=== PATIENT | female | born 1925 | race Caucasian/White ===

== ENCOUNTER 2016-09-28 17:11 | Inpatient (IN) | payer MEDICARE, MEDICAID ==
[2016-09-27 23:00] VITALS: BP 101/46
[~2016-09-28] VITALS: Ht 165.1 cm; Wt 78.9 kg
[~2016-09-28 17:11] MED LIST: AMLO5TAB PO; ASPIRIN 81MG TA81 MG PO; BENADRYL ALLERG25 MG PO; CARDIZEM CD300 M1 PO; CYANOCOBAL1000 MCG/M PO; DIOVAN HCT 12.51 TA1 PO; ELIQUIS2.5 MG PO; FUROSEMIDE 20MG20 MG PO; FUROSEMIDE40 MG PO; GLIPIZIDE 5MG TA5 MG PO; GLIPIZIDE ER 5MG5 MG PO; LEVOTHYROXIN0.075 M1 PO; LUMIGAN 2.5 ML2.5 M1 OP; PATADAY 2.5 ML2.5 ML OP; PHENERGAN25 M3 PO; RANITIDINE HCL150 MG PO; SIMVASTATIN20 MG PO; VALSARTAN AND H1 TA1 PO; VITAMIN B12500 MCG PO; VITAMIN D1000 IU PO; VITAMIN D31000 IU PO
[2016-09-28 17:12] VITALS: BP 150/79
[2016-09-28] MEDS ORDERED: LASIX 40MG. TAB40 MG PO (17:26)
--- NOTE | 2016-09-28 17:26 | Emergency Room Report ---
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 N Clinical Suspician of Infection? N Mental Status: 1 - Regular (Normal Baseline) Sepsis Risk:Low Sepsis Risk Have you (or family members/close friends) recently traveled outside the [place]? N If Yes, where/when: Have you had exposure to infectious disease within the past month? TB? Other? Specify: Comment The patient is brought in by ambulance with a complaint of rapid heartbeat. This started about 4:30 PM. She has a history of atrial fibrillation and says she was admitted for the same thing about a month ago and was in the hospital for 3 days. She says she has slight shortness of breath with it but no chest pain. She feels tired but not presyncopal. No nausea or vomiting or diaphoresis. She does not have a history of coronary artery disease or congestive heart failure to her knowledge. ALLERGIES Coded Allergies: Penicillins (08/09/16) meclizine (08/09/16) prednisone (08/09/16) Home Medications Active Scripts DILTIAZEM HCL (Cardizem Cd 300MG) 300 MG PO DAILY #30 Ref 3 Prov: 08/12/16 ASPIRIN (Aspirin) 325 MG PO DAILY #30 Ref 3 Prov: 08/12/16 Reported Medications [facility] ([facility] 1 DROP OP DAILY VALSARTAN/HYDROCHLOROTHIAZIDE (Valsartan-Hctz 160-12.5 MG Tab) 1 TAB PO DAILY Simvastatin 20 MG PO DAILY Glipizide (Glipizide 5MG) 2.5 MG PO DAILY Ranitidine Hcl (Ranitidine 150MG) 150 MG PO BID Levothyroxine Sodium (Levothyroxine 0.075MG) 0.075 MG PO DAILY VITAMIN B12 (Cyanocobalamin Injection) 1,000 MCG PO DAILY Furosemide (Lasix 40MG) 20 MG PO DAILY History Medical History General CAD? No Angina: No [place]: No Hypertension? Yes Hyperlipidemia? Yes CHF? No DVT? Yes PE? No COPD? No Asthma? No Anemia? No GERD? Yes Gastric ulcers? No GI Bleed? No Hernia? No Thyroid Problems? Yes Hypothyroidism? Yes CVA? No Seizures? No Diabetes? Yes Insulin Dependent: No Insulin Pump: No Home FSBS? No Renal Insuffiency? No End Stage Renal Disease? No UTI? Yes Stones? No GB Disease: Yes Nephritic Syndrome? No Asplenia? No Hepatitis? No Sickle Cell Disease? No Arthritis? No Migraines? No Cataracts? Yes Glaucoma? Yes MRSA? No HIV? No TB? No Anxiety? No Depression? No Cancer? No More? Yes Additional hx: A FIB Immunization Hx DT/Tetanus 12/13/2005 Flu Refused Pneumonia Received In Past Surgical Hx Previous Surgery?Y C SECTION X 3 GALLBLADDER TOE OPERATION Family History Family Hx Diabetes Yes CAD Yes Hypertension Yes Hyperlipidemia No Cancer Yes TB No Social History Smoking Hx Smoker: Never Smoker Tobacco: No Packs/day N/A Alcohol Alcohol: No Review of Systems All Other Systems Reviewed and Negative Constitutional denies diaphoresis, denies fever, malaise Respiratory shortness of breath Cardiovascular denies chest pain, palpitations, denies syncope Gastrointestinal denies nausea, denies vomiting Physical Exam Vital Signs Vital Signs Date Time Temp Pulse Resp B/P Pulse O2 O2 Flow FiO2 Ox Delivery Rate 09/28 2007 97.6 102 16 132/82 95 ROOM AIR 09/28 1919 97.8 102 16 135/56 09/28 1903 97.8 102 16 135/56 100 2 09/28 1832 102 16 135/56 100 2 09/28 1752 100 16 131/45 100 2 09/28 1712 97.8 112 16 150/79 100 2 General Appearance normal appearance, WD/WN Eye Exam - bilateral eye normal exam, bilateral eye PERRL, bilateral eye EOMI Ear, Nose, Throat hearing grossly normal, normal ENT inspection Neck normal inspection, non-tender, supple, full range of motion Respiratory Status Yes: trachea midline, chest symmetrical, non tender chest. No: respiratory distress. Lung Sounds bilateral: normal breath sounds, lungs clear. 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 No Results/Orders Laboratory Tests 09/28/161714: TSH 1.48, Free T4 1.47 H 09/28/161714: Sodium 136, Potassium 3.0 L, Chloride 95 L, Carbon Dioxide 30, BUN 32 H, Creatinine 1.6 H, Estimated Creat Clear 33 L, Estimated GFR (MDRD) 30 L, Glucose 126 H, Calcium 9.3, Total Bilirubin 0.3, AST 20, ALT 17, Alkaline Phosphatase 114, Troponin I < 0.02, Total Protein 8.8 H, Albumin 4.0, Globulin 4.8 H, Albumin/Globulin Ratio 0.8 L, WBC 11.0 H, RBC 4.77, Hgb 14.9, Hct 43.5 , MCV 91.1, RDW 15.0, Plt Count 488 H, MPV 8.8, Gran % 74.9, Gran # 8.3 H, Lymphocytes % 16.0, Monocytes % 5.8, Eosinophils % 2.6, Basophils % 0.7, Lymphocytes # 1.8, Monocytes # 0.6, Eosinophils # 0.3, Basophils # 0.1, PUBS MCHC 34.3, MCH 31.3 H Current Medication Orders Sig/Mega Start time Last Medication Dose Route Stop Time Status Admin Diagnostic Test (Pha) 1 EACH W/MEALS&HS 09/28 2099 UNV FS 11/27 2058 Insulin Human [rDNA See Dose W/MEALS&HS 09/28 2099 UNV origin] Insts (1) SC Diltiazem HCl 100 MG .Q10H 09/28 1844 UNV Sodium Chloride 100 ML IV Influenza Virus 0.5 ML PRN PRN 09/28 1844 UNV Vaccine Quadrival IM Nicotine 21 MG DAILYP PRN 09/28 1844 UNV TD Sodium Chloride 10 ML PRN PRN 09/28 1844 UNV IV Potassium Chloride 40 MEQ ONCE ONE 09/28 1814 DC 09/28 PO 01/01 1816 1817 Potassium Chloride 0 .STK-MED ONE 09/28 1811 DC PO Diltiazem HCl 100 MG ONCE ONE 09/28 1745 AC 09/28 Sodium Chloride 100 ML IV 09/29 0344 1753 Diltiazem HCl 10 MG ONCE ONE 09/28 1745 DC 09/28 IV 09/28 1746 1753 Sodium Chloride 10 ML PRN PRN 09/28 1745 AC IV 09/29 1745 Sodium Chloride 100 ML .STK-MED ONE 09/28 1744 DC IV Diltiazem HCl 0 .STK-MED ONE 09/28 1743 DC IV Diltiazem HCl 0 .STK-MED ONE 09/28 1742 DC IV Dose Instructions: (1)Insulin Human [rDNA origin]: SEE ADMIN CRITERIA FOR MEDIUM INTENSITY Orders Procedure Date/time Status -1999 CALORIE ADA 09/29 B Active BASIC METABOLIC PROFILE 09/29 0600 Active TROPONIN I 09/29 0500 Active TROPONIN I 09/29 0100 Active TROPONIN I 09/28 2100 Active ADMITTED PT IS ACTUALLY IN BED 09/28 2010 Active Decision to admit 09/28 1820 Active THYROID STIMULATING HORMONE 09/28 1746 Complete FREE T4 09/28 1746 Complete ELECTROCARDIOGRAM REQUEST 09/28 1745 Active IV SALINE LOCK 09/28 1745 Active TROPONIN I 09/28 1745 Complete CBC WITH AUTO DIFF 09/28 1745 Complete CHEM 12 PROFILE 09/28 1745 Complete ADMIT PATIENT 09/28 UNK Active 12 LEAD EKG-MONIE (INITIAL) 09/28 UNK Active PULSE OXIMETRY REQUEST 09/28 UNK Active OXYGEN REQUEST 09/28 UNK Active VITAL SIGNS 09/28 UNK Active 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 Baseline artifact present, but I consider the EKG adequate for accurate interpretation. XRAY/CT/US XRAY/CT/US XRAY chest Comment X-ray interpreted by Rah Jones M.D. No infiltrate, pneumothorax, pleural effusion, or wide mediastinum. Progress - 6:15 PM: I have discussed the case with Dr. Bradford for Dr. Mcgrath who agrees to admit the patient to the hospital. We discussed the patient's clinical information, including history, exam, laboratory and radiology results and ED course. Per hospital procedure, I will write temporary bridge inpatient orders on the patient. Specific orders requested by the admitting physician: Nadeem conley per protocol Departure Departure Disposition Still a Patient Clinical Impression Primary Impression: Rapid atrial fibrillation Condition STABLE Referrals Antoine Mcgrath MD (Family) ED Critical Care Critical Care Yes Time spent 30-74 min Vital system(s) involved: Circulatory Failure I was present at bedside for Coordinating pt's care, Interpreting EKGs/Strips , During my initial exam, Reviewing lab results, Reviewing old records, Discussing pt condition, Examining radiographs at 2035
[2016-09-28 17:53] LABS: LYMPH # 1.8 K/mm3 (0.7-4.5)
[2016-09-28 17:54] LABS: HEMOGLOBIN 14.9 g/dL (12.2-16.2)
[2016-09-28 18:02] LABS: BUN 32 mg/dL (7-18); GFR (ESTIMATED) 30 ML/MIN (59-)
--- NOTE | 2016-09-28 18:37 | RADIOLOGY REPORT PS360 ---
CHEST-PORTABLE COMPARISON: Portable upright chest 08/09/2016 HISTORY: Palpitations TECHNIQUE: Portable upright chest FINDINGS: The lung conner are fairly well-expanded and appear clear of infiltrate. There is mild cardiomegaly however there is no pulmonary congestion and is no pleural fluid. There are monitor lines overlying the chest. There is mild degenerative changes in both AC joints with somewhat high riding humeral heads bilaterally. IMPRESSION: Mild Cardio megaly, no acute chest pathology noted
[2016-09-28 19:19] VITALS: BP 135/56
[2016-09-28 20:00] VITALS: BP 165/58
[2016-09-28 20:08] VITALS: BP 132/82
[2016-09-28 21:00] VITALS: BP 130/51; BP 149/60
[2016-09-28 22:00] VITALS: BP 130/51
[2016-09-29] VITALS (26 sets, daily range): BP systolic 92–151; BP diastolic 41–72
[2016-09-29 05:44] LABS: BUN 29 mg/dL (7-18)
[2016-09-29 05:50] LABS: GFR (ESTIMATED) 33 ML/MIN (59-)
--- NOTE | 2016-09-29 07:17 | PHARMACY CLINIC NOTE ---
Patient Demographics Patient Demographics Admission date: 09/28/16 Date: 09/29/16 Time: 0717 Allergies Coded Allergies: Penicillins (08/09/16) meclizine (08/09/16) prednisone (08/09/16) HEIGHT- FT: 5 IN: 5.00 K.574 VTE General Information Labs: Laboratory Tests 09/28 1715 Hematology Hgb (12.2 - 16.2 g/dL) 14.9 Hct (37.0 - 47.0 %) 43.5 Plt Count (142 - 424 K/mm3) 488 H Disclaimer The following section includes nursing documentation that has been pulled in for pharmacy review. Patient's VTE score: 3 Patient's VTE Risk: LOW RISK Clinical trial participant? No VTE prophylaxis [id number] [id number] VTE prophylaxis ordered? Yes Type of prophylaxis/treatment: AVELINA at 0717
--- NOTE | 2016-09-29 07:17 | PHARMACY CLINIC NOTE ---
Patient Demographics Patient Demographics Admission date: 09/28/16 Date: 09/29/16 Time: 0717 Allergies Coded Allergies: Penicillins (08/09/16) meclizine (08/09/16) prednisone (08/09/16) HEIGHT- FT: 5 IN: 5.00 K.574 VTE General Information Labs: Laboratory Tests 09/28 1715 Hematology Hgb (12.2 - 16.2 g/dL) 14.9 Hct (37.0 - 47.0 %) 43.5 Plt Count (142 - 424 K/mm3) 488 H Disclaimer The following section includes nursing documentation that has been pulled in for pharmacy review. Patient's VTE score: 3 Patient's VTE Risk: LOW RISK Clinical trial participant? No VTE prophylaxis [id number] [id number] VTE prophylaxis ordered? Yes Type of prophylaxis/treatment: AVELINA at 0717
--- NOTE | 2016-09-29 08:58 | HISTORY AND PHYSICAL REPORT ---
History and Physical (FCA) Date of admission: 09/28/16 Chief complaint: rapid heart rate and choking History: History of Present Illness: Ms Claudio is an 89 year old female with a history of atrial fibrillation, HTN, hypothyroidism, and type 2 DM who presented to [facility] ER after experiencing rapid heart rate with choking sensation. She stated that this did improve on the way to the hospital with EMS. She denies CP. The rapid heart rate began about 1500 when sitting. She had become upset after being spoken to harshly by family members. This AM she is feeling better. She denies SOB and CP. She is eating her breakfast. Past Medical History: Medical History: CAD? No Angina: No [place]: No Hypertension? Yes Hyperlipidemia? Yes CHF? No DVT? Yes PE? No COPD? No Asthma? No Anemia? No GERD? Yes Gastric ulcers? No GI Bleed? No Hernia? No Thyroid Problems? Yes Hypothyroidism? Yes CVA? No Seizures? No Diabetes? Yes Insulin Dependent: No Insulin Pump: No Home FSBS? No Renal Insuffiency? No UTI? Yes Stones? No GB Disease: Yes Nephritic Syndrome? No Asplenia? No Hepatitis? No Sickle Cell Disease? No Arthritis? No Migraines? No Cataracts? Yes Glaucoma? Yes MRSA? No HIV? No TB? No Anxiety? No Depression? No Cancer? No More? Yes Additional hx: A FIB Surgical history: Previous Surgery?Y C SECTION X 3 GALLBLADDER TOE OPERATION Medications: Active Scripts DILTIAZEM HCL (Cardizem Cd 300MG) 300 MG PO DAILY #30 Ref 3 Prov: 08/12/16 ASPIRIN (Aspirin) 325 MG PO DAILY #30 Ref 3 Prov: 08/12/16 Reported Medications Bimatoprost (Lumigan 0.1% [facility]) 1 DROP OP DAILY VALSARTAN/HYDROCHLOROTHIAZIDE (Valsartan-Hctz 160-12.5 MG Tab) 1 TAB PO DAILY Simvastatin 20 MG PO DAILY Glipizide (Glipizide 5MG) 2.5 MG PO DAILY Ranitidine Hcl (Ranitidine 150MG) 150 MG PO BID Levothyroxine Sodium (Levothyroxine 0.075MG) 0.075 MG PO DAILY VITAMIN B12 (Cyanocobalamin Injection) 1,000 MCG PO DAILY Furosemide (Lasix 40MG) 20 MG PO DAILY Allergies: Coded Allergies: Penicillins (08/09/16) meclizine (08/09/16) prednisone (08/09/16) Family History: Family history: Postive for: DM, cancer. Social History: Smoking Hx Tobacco: No Smoker: Never Smoker Type: N/A Packs/day: N/A Are you exposed to second hand No Alcohol: Alcohol: No Hx of Drug Use: Drug Use? No Patien't marital status is: Review of Systems: Constitutional No: fatigue. ENT No: mouth pain, sore throat. Cardiovascular Positive for: palpitations. No: chest pain. Respiratory Positive for: shortness of air. No: non-productive, productive cough (sputum). GI No: GERD, abdominal pain, constipation, diarrhea, nausea, vomitting. (female) No: frequency, hematuria. Neurological No: dizziness, headache, seizure, syncope. Musculoskeletal No: extremity pain, extremity swelling, joint pain. Physical Exam: Vital signs: 1ST Vital Signs Result Date Time Pulse Ox 97 09/27 2300 B/P 101/46 09/27 2300 O2 Delivery ROOM AIR 09/27 2300 Pulse 76 09/27 2300 Resp 14 09/27 230 O2 Flow Rate 2 09/28 1712 Temp 97.8 09/28 171 Exam: General appearance: alert, active, no acute distress Eyes: anicteric, pupils reactive to light ENT: mucous membranes moist, pharynx normal Neck: no carotid bruit, lymphadenopathy (absent), thyroid (normal) Cardiovascular: irregularly irregular, monitor showing AT Fib with PVC's Respiratory: clear to auscultation (bilat anterior and posterior) ABD: non-distended, soft, no tenderness, bowel sounds present Extremities: no peripheral edema, no calf tenderness Neuro: alert, oriented, speech clear Lab data: Labs: Laboratory Tests 09/29/16 0731: POC Glucose 128 H 09/29/16 0500: Sodium 139, Potassium 4.2, Chloride 102, Carbon Dioxide 31, BUN 29 H, Creatinine 1.5 H, Estimated GFR (MDRD) 33 L, Glucose 124 H, Calcium 8.7, Troponin I 0.03 09/29/16 0100: Troponin I 0.03 09/28/16 2201: POC Glucose 117 H 09/28/16 2100: Troponin I 0.02 09/28/16 1715: TSH 1.48, Free T4 1.47 H 09/28/16 1715: Sodium 136, Potassium 3.0 L, Chloride 95 L, Carbon Dioxide 30, BUN 32 H, Creatinine 1.6 H, Estimated Creat Clear 33 L, Estimated GFR (MDRD) 30 L, Glucose 126 H, Calcium 9.3, Total Bilirubin 0.3, AST 20, ALT 17, Alkaline Phosphatase 114, Troponin I < 0.02, Total Protein 8.8 H, Albumin 4.0, Globulin 4.8 H, Albumin/Globulin Ratio 0.8 L, WBC 11.0 H, RBC 4.77, Hgb 14.9, Hct 43.5 , MCV 91.1, RDW 15.0, Plt Count 488 H, MPV 8.8, Gran % 74.9, Gran # 8.3 H, Lymphocytes % 16.0, Monocytes % 5.8, Eosinophils % 2.6, Basophils % 0.7, Lymphocytes # 1.8, Monocytes # 0.6, Eosinophils # 0.3, Basophils # 0.1, PUBS MCHC 34.3, MCH 31.3 H Radiology results: Results: CXR FINDINGS: The lung conner are fairly well-expanded and appear clear of infiltrate. There is mild cardiomegaly however there is no pulmonary congestion and is no pleural fluid. There are monitor lines overlying the chest. There is mild degenerative changes in both AC joints with somewhat high riding humeral heads bilaterally. IMPRESSION: Mild Cardio megaly, no acute chest pathology noted Diagnosis(es): 1. Atrial fibrillation with rapid ventricular response 2. HTN (hypertension) 3. Renal insufficiency 4. DM2 (diabetes mellitus, type 2) 5. Hypothyroidism 6. GERD (gastroesophageal reflux disease) Plan: start back on PO cardizem and wean from gtt; continue to monitor (Keri De Paz APRN) Diagnosis(es): 1. Atrial fibrillation with rapid ventricular response 2. HTN (hypertension) 3. Renal insufficiency 4. DM2 (diabetes mellitus, type 2) 5. Hypothyroidism 6. GERD (gastroesophageal reflux disease) Plan: Patient seen and agree with above note. (Antoine Mcgrath MD) at 0929 at [phone]
[2016-09-30] VITALS (13 sets, daily range): BP systolic 116–156; BP diastolic 58–90
--- NOTE | 2016-09-30 07:43 | ACUTE CARE PROGRESS NOTE (QUA) ---
See Addendum Progress Notes Subjective Date 09/30/16 Time 0730 Note Did not sleep until this AM; unable to sleep for unknown reasons; breathing as usual; denies CP; + stool; is eating without problems; voiding QS Per nursing: has been off of cardizem gtt since yesterday afternoon; has remained in At fib with high V rate 120. Cardiac enzymes were negative x3. Objective Findings Laboratory Tests 09/30/16 0620: POC Glucose 120 H 09/29/16 1708: POC Glucose 132 H 09/29/16 1416: POC Glucose 136 H Vital Signs Date Time Temp Pulse Resp B/P Pulse O2 O2 Flow FiO2 Ox Delivery Rate 09/30 0600 91 18 146/58 97 ROOM AIR / 0500 88 18 123/68 97 ROOM AIR / 0400 97.8 80 17 148/59 97 01/03 0300 95 15 152/64 96 ROOM AIR /03 0200 85 18 141/70 97 ROOM AIR 01/03 0100 88 18 132/88 97 ROOM AIR 01/03 0000 97.9 84 18 127/61 97 ROOM AIR 01/02 2300 72 16 110/57 95 ROOM AIR 01/02 2200 77 18 135/41 94 ROOM AIR 01/02 2100 73 18 133/70 97 ROOM AIR 01/02 2000 83 21 139/58 98 ROOM AIR 01/02 1945 97.9 88 18 139/58 96 01/02 1800 81 18 129/64 99 ROOM AIR 01/02 1700 66 18 107/60 97 ROOM AIR 01/02 1600 98.3 72 18 101/53 93 ROOM AIR 01/02 1600 98.3 58 16 130/52 95 01/02 1500 73 18 107/45 95 ROOM AIR 01/02 1400 84 18 115/59 98 ROOM AIR 01/02 1300 83 18 128/63 98 ROOM AIR 01/02 1200 98.9 66 18 136/56 97 ROOM AIR 01/02 1100 59 18 92/48 95 ROOM AIR 01/02 1000 63 18 103/42 95 ROOM AIR 01/02 0900 72 18 130/72 96 ROOM AIR 01/02 0830 98.3 58 16 130/52 95 01/02 0800 98.5 101 18 151/50 96 ROOM AIR Current Medications Insulin Human [rDNA origin] 0 .STK-MED ONE SC (DC) Pravastatin Sodium 40 MG QHS PO Sodium Chloride 1,000 ML .STK-MED ONE IV (DC) Famotidine 20 MG BID PO Levothyroxine Sodium 0.075 MG DAILY PO Bimatoprost 1 DROP DAILY OP Diltiazem HCl 180 MG ONCE ONE PO (DC) Sodium Chloride 1,000 ML .[id number] IV Diltiazem HCl 300 MG DAILY PO (DC) Diagnostic Test (Pha) 1 EACH W/MEALS&HS FS Insulin Human [rDNA origin] SEE ADMIN CRITERIA FOR MEDIUM INTENSITY W/MEALS&HS SC Diltiazem HCl 100 MG .Q10H IV (DC) Sodium Chloride 100 ML Influenza Virus Vaccine Quadrival 0.5 ML PRN PRN IM Nicotine 21 MG DAILYP PRN TD Sodium Chloride 10 ML PRN PRN IV Sodium Chloride 10 ML PRN PRN IV (DC) 09/29 1500 09/29 2300 09/30 0700 Intake Total 240 180 950 Output Total 200 Balance 240 -20 950 Intake, IV 950 Intake, Oral 240 180 Output, Urine 200 Patient 184 lb 174 lb Weight Last VS-Temp:97.8 B/P:146/58 Pulse:91 Resp:18 SaO2:97 ROOM AIR Last weight lbs:174 oz:0 K.925 Method:Floor Scales Exam General appearance: normal appearance, alert, active, no acute distress, sitting on bedside eating breakfast Cardiovascular: irregularly irregular, 110/min Respiratory: CTAB A&P ABD: non-distended, soft, no tenderness, bowel sounds present Extremities: no peripheral edema Assessment/Plan Problem List 1. Atrial fibrillation with rapid ventricular response 2. HTN (hypertension) 3. Renal insufficiency 4. DM2 (diabetes mellitus, type 2) 5. Hypothyroidism 6. GERD (gastroesophageal reflux disease) Patient condition Improved Plan: Patient states that she cannot return to living with her [facility]; No other definite plans have been made. will increase cardizem; ambulate This inpt stay is expected to cross 2 MNs from start of care Yes (Keri De Paz APRN) Assessment/Plan Problem List 1. Atrial fibrillation with rapid ventricular response 2. HTN (hypertension) 3. Renal insufficiency 4. DM2 (diabetes mellitus, type 2) 5. Hypothyroidism 6. GERD (gastroesophageal reflux disease) Comments: Patient seen this morning. HR was actually well controlled yesterday afternoon and last night. OK with higher dose of Cardizem today. (Antoine Mcgrath MD) at 0742 at [phone]
[2016-10-01] VITALS: BP 131/68
[2016-10-01 04:05] VITALS: BP 149/72
[2016-10-01 08:02] VITALS: BP 174/71
--- NOTE | 2016-10-01 08:06 | ACUTE CARE PROGRESS NOTE (QUA) ---
See Addendum Progress Notes Subjective Date 10/01/16 Time 0720 Note Pt states that she feels much better; Denies SOB and CP; eating well; was OOB yesterday; + stool and voiding QS. Nursing reports HR high in the 90's and in the 60's when sleeping; OT note reviewed Objective Findings Laboratory Tests 10/01/16 0659: POC Glucose 95 09/30/16 2208: POC Glucose 133 H 09/30/16 1728: POC Glucose 107 09/30/16 1209: POC Glucose 111 H Vital Signs Date Time Temp Pulse Resp B/P Pulse O2 O2 Flow FiO2 Ox Delivery Rate 10/01 0405 98.2 99 18 149/72 92 ROOM AIR 10/01 0000 98.6 80 16 131/68 96 ROOM AIR 09/30 2100 97.9 75 17 136/74 95 09/30 2000 97.9 75 17 136/74 95 ROOM AIR 09/30 1600 98.1 98 16 131/90 98 ROOM AIR 09/30 1228 96.7 78 17 130/59 98 ROOM AIR 09/30 1207 97.6 78 16 130/59 96 ROOM AIR 09/30 1020 97.8 80 20 131/63 96 09/30 1020 97.8 96 18 156/88 95 09/30 0810 97.8 97 18 156/88 95 ROOM AIR Current Medications Bimatoprost 1 DROP DAILY OP Diltiazem HCl 360 MG DAILY PO Levothyroxine Sodium 0.075 MG DAILY PO Famotidine 20 MG BID PO Pravastatin Sodium 40 MG QHS PO Sodium Chloride 1,000 ML .[id number] IV Diagnostic Test (Pha) 1 EACH W/MEALS&HS FS Insulin Human [rDNA origin] SEE ADMIN CRITERIA FOR MEDIUM INTENSITY W/MEALS&HS SC Influenza Virus Vaccine Quadrival 0.5 ML PRN PRN IM Nicotine 21 MG DAILYP PRN TD Sodium Chloride 10 ML PRN PRN IV Diltiazem HCl 360 MG DAILY PO (DC) Pravastatin Sodium 40 MG QHS PO (DC) Famotidine 20 MG BID PO (DC) Levothyroxine Sodium 0.075 MG DAILY PO (DC) Bimatoprost 1 DROP DAILY OP (DC) Sodium Chloride 1,000 ML .[id number] IV (DC) Diagnostic Test (Pha) 1 EACH W/MEALS&HS FS (DC) Insulin Human [rDNA origin] SEE ADMIN CRITERIA FOR MEDIUM INTENSITY W/MEALS&HS SC (DC) Influenza Virus Vaccine Quadrival 0.5 ML PRN PRN IM (DC) Nicotine 21 MG DAILYP PRN TD (DC) Sodium Chloride 10 ML PRN PRN IV (DC) 09/30 1500 09/30 2300 10/01 0700 Intake Total 480 947 Output Total 400 Balance 480 547 Intake, IV 747 Intake, Oral 480 200 Output, Stool Output, Urine 400 Last VS-Temp:98.2 B/P:149/72 Pulse:99 Resp:18 SaO2:92 ROOM AIR Last weight lbs:174 oz:0 K.925 Method:Floor Scales Exam General appearance: alert, no acute distress Cardiovascular: irregularly irregular, monitor showing at fib with ventricular rate in the 90's Respiratory: clear to auscultation (bilat anterior and posterior) ABD: non-distended, soft, no tenderness, bowel sounds present Extremities: no peripheral edema, no calf tenderness Neuro: alert, oriented, conversant Assessment/Plan Problem List 1. Atrial fibrillation with rapid ventricular response 2. HTN (hypertension) 3. Renal insufficiency 4. DM2 (diabetes mellitus, type 2) 5. Hypothyroidism 6. GERD (gastroesophageal reflux disease) 7. Declining functional status Patient condition Improved Plan: continue current care, per Care Management: her case is being reviewed by the area nursing homes for disposition. This inpt stay is expected to cross 2 MNs from start of care Yes (Keri De Paz APRN) Assessment/Plan Problem List 1. Atrial fibrillation with rapid ventricular response 2. HTN (hypertension) 3. Renal insufficiency 4. DM2 (diabetes mellitus, type 2) 5. Hypothyroidism 6. GERD (gastroesophageal reflux disease) 7. Declining functional status Comments: Patient seen and agree with above note. She feels better today. PT evaluation ordered at the request of care management yesterday has not been done. Plan to evaluate patient again later today. (Antoine Mcgrath MD) at 0806 at 1014
[2016-10-01 11:50] VITALS: BP 130/67
--- NOTE | 2016-10-01 14:42 | DISCHARGE SUMMARY STANDARD ---
Discharge Summary (FCA2) Date of admission: 09/28/16 Date of discharge: 10/01/16 Problem List: 1. Atrial fibrillation with rapid ventricular response 2. HTN (hypertension) 3. Renal insufficiency 4. DM2 (diabetes mellitus, type 2) 5. Hypothyroidism 6. GERD (gastroesophageal reflux disease) 7. Declining functional status History of present illness: Ms Claudio is an 89 year old female with a history of atrial fibrillation, HTN, hypothyroidism, and type 2 DM who presented to [facility] ER after experiencing rapid heart rate with choking sensation. She stated that this did improve on the way to the hospital with EMS. She denied CP. The rapid heart rate began about 1500 when sitting. She had become upset after being spoken to harshly by family members. Exam on admission: General appearance: alert, active, no acute distress Eyes: anicteric, pupils reactive to light ENT: mucous membranes moist, pharynx normal Neck: no carotid bruit, lymphadenopathy (absent), thyroid (normal) Cardiovascular: irregularly irregular, monitor showing AT [facility] with PVC's Respiratory: clear to auscultation (bilat anterior and posterior) ABD: non-distended, soft, no tenderness, bowel sounds present Extremities: no peripheral edema, no calf tenderness Neuro: alert, oriented, speech clear Hospital Course: The patient was in A.fib with a RVR. She was admitted to step down and started on a cardizem drip. She was able to be weaned off of the drip and started on PO cardizem. The dose did have to be increased for rate control. Her cardiac enzymes were normal x 3. She was evaluated by PT and they felt she would need to be discharged to a SNF for cardiac management. A bed was found for her at [facility] and she was stable to be discharged. She will need vital signs taken three times a day. Discharge medications: Stop taking the following medications: DILTIAZEM HCL (Cardizem Cd 300MG) 300 MG CAP.ER.24H ORAL DAILY Qty = 30 Furosemide (Lasix 40MG) 40 MG TABLET ORAL DAILY Continue taking these medications: VALSARTAN/HYDROCHLOROTHIAZIDE (Valsartan-Hctz 160-12.5 MG Tab) 1 EACH TABLET 1 TABLET ORAL DAILY Simvastatin (Simvastatin) 20 MG TABLET 20 MILLIGRAM ORAL DAILY Glipizide (Glipizide 5MG) 5 MG TABLET 2.5 MILLIGRAM ORAL DAILY Ranitidine Hcl (Ranitidine 150MG) 150 MG TABLET 150 MILLIGRAM ORAL TWICE A DAY Levothyroxine Sodium (Levothyroxine 0.075MG) 75 MCG TABLET 0.075 MILLIGRAM ORAL DAILY Bimatoprost (Lumigan 0.1% Ophth Soln) 2.5 ML DROPS 1 DROP OPHTHALMIC DAILY VITAMIN B12 (Cyanocobalamin Injection) 1,000 MCG/ML VIAL 1,000 MICROGRAM ORAL DAILY ASPIRIN (Aspirin) 81 MG TAB.CHEW 325 MILLIGRAM ORAL DAILY Qty = 30 Start taking the following new medications: DILTIAZEM HCL (Tiazac 180MG) 180 MG CAPSULE.ER 360 MILLIGRAM ORAL DAILY Days = 30 Refills = 5 Disposition: F/U with: Antoine Mcgrath MD Follow up: 6 DAYS Activity: Cont Current activity Diet: Continue same diet Discharge to: [facility] Specify Nsg Home: [facility] at [id number]
--- NOTE | 2016-10-01 14:42 | DISCHARGE SUMMARY STANDARD ---
Discharge Summary (FCA2) Date of admission: 09/28/16 Date of discharge: 10/01/16 Problem List: 1. Atrial fibrillation with rapid ventricular response 2. HTN (hypertension) 3. Renal insufficiency 4. DM2 (diabetes mellitus, type 2) 5. Hypothyroidism 6. GERD (gastroesophageal reflux disease) 7. Declining functional status History of present illness: Ms Claudio is an 89 year old female with a history of atrial fibrillation, HTN, hypothyroidism, and type 2 DM who presented to [facility] ER after experiencing rapid heart rate with choking sensation. She stated that this did improve on the way to the hospital with EMS. She denied CP. The rapid heart rate began about 1500 when sitting. She had become upset after being spoken to harshly by family members. Exam on admission: General appearance: alert, active, no acute distress Eyes: anicteric, pupils reactive to light ENT: mucous membranes moist, pharynx normal Neck: no carotid bruit, lymphadenopathy (absent), thyroid (normal) Cardiovascular: irregularly irregular, monitor showing AT [facility] with PVC's Respiratory: clear to auscultation (bilat anterior and posterior) ABD: non-distended, soft, no tenderness, bowel sounds present Extremities: no peripheral edema, no calf tenderness Neuro: alert, oriented, speech clear Hospital Course: The patient was in A.fib with a RVR. She was admitted to step down and started on a cardizem drip. She was able to be weaned off of the drip and started on PO cardizem. The dose did have to be increased for rate control. Her cardiac enzymes were normal x 3. She was evaluated by PT and they felt she would need to be discharged to a SNF for cardiac management. A bed was found for her at [facility] and she was stable to be discharged. She will need vital signs taken three times a day. Discharge medications: Stop taking the following medications: DILTIAZEM HCL (Cardizem Cd 300MG) 300 MG CAP.ER.24H ORAL DAILY Qty = 30 Furosemide (Lasix 40MG) 40 MG TABLET ORAL DAILY Continue taking these medications: VALSARTAN/HYDROCHLOROTHIAZIDE (Valsartan-Hctz 160-12.5 MG Tab) 1 EACH TABLET 1 TABLET ORAL DAILY Simvastatin (Simvastatin) 20 MG TABLET 20 MILLIGRAM ORAL DAILY Glipizide (Glipizide 5MG) 5 MG TABLET 2.5 MILLIGRAM ORAL DAILY Ranitidine Hcl (Ranitidine 150MG) 150 MG TABLET 150 MILLIGRAM ORAL TWICE A DAY Levothyroxine Sodium (Levothyroxine 0.075MG) 75 MCG TABLET 0.075 MILLIGRAM ORAL DAILY Bimatoprost (Lumigan 0.1% Ophth Soln) 2.5 ML DROPS 1 DROP OPHTHALMIC DAILY VITAMIN B12 (Cyanocobalamin Injection) 1,000 MCG/ML VIAL 1,000 MICROGRAM ORAL DAILY ASPIRIN (Aspirin) 81 MG TAB.CHEW 325 MILLIGRAM ORAL DAILY Qty = 30 Start taking the following new medications: DILTIAZEM HCL (Tiazac 180MG) 180 MG CAPSULE.ER 360 MILLIGRAM ORAL DAILY Days = 30 Refills = 5 Disposition: F/U with: Antoine Mcgrath MD Follow up: 6 DAYS Activity: Cont Current activity Diet: Continue same diet Discharge to: [facility] Specify Nsg Home: [facility] at [id number]
[2016-10-01] MEDS ORDERED: TIAZAC180 MG PO (14:43)
[2016-10-01 16:00] VITALS: BP 135/69
[2016-11-18] MEDS ORDERED: POTASSIUM CHLO10 ME3 PO (14:31)
[2016-11-18] MEDS ORDERED: GLUCOTROL10 MG PO (14:32)
[2016-11-18] MEDS ORDERED: GABAPENTIN300 MG PO (14:32)
[2016-11-18] MEDS ORDERED: CARDIZEM CD180 MG PO (14:33)
[2016-11-18] MEDS ORDERED: SIMVASTATIN20 MG PO (14:33)
[2016-11-18] MEDS ORDERED: ASPIRIN 81MG TA81 MG PO (14:34)
[2016-11-18] MEDS ORDERED: VALSARTAN160 MG PO (14:34)
[2016-11-18] MEDS ORDERED: LEADER NATUR1000 MCG PO (14:35)
[2016-11-18] MEDS ORDERED: SULFACETAMIDE S15 M1 OP (14:36)
[2016-11-18] MEDS ORDERED: LASIX 40MG. TAB40 MG PO (14:36)
[2016-11-18] MEDS ORDERED: TAMIFLU 75MG CA75 MG PO (16:06)
[2016-11-18] MEDS ORDERED: ZITHROMAX Z PA250 MG PO (16:06)
[2016-11-20] MEDS ORDERED: LUMIGAN 2.5 ML2.5 M1 OP (20:18)
[2016-11-20] MEDS ORDERED: GLIPIZIDE 5MG TA5 MG PO (20:19)
[2016-11-20] MEDS ORDERED: VALSARTAN AND H1 TA1 PO (20:24)
[2016-11-20] MEDS ORDERED: GABAPENTIN300 M1 PO (20:25)
[2016-11-21] MEDS ORDERED: RANITIDINE HCL150 MG PO (08:37)
[2016-11-21] MEDS ORDERED: VALSARTAN AND H1 TA1 PO (08:38)
[2016-11-27] MEDS ORDERED: LEVAQUIN500 MG PO (12:26)
[2016-11-27] MEDS ORDERED: PROAIR HFA0.09 MG/AC IH (12:27)
== END 2016-10-01 17:30 | DRG 310 ==
LOC: ER 17:11 → 2ND 18:22 → ICU 19:04
PROVIDERS: Emergency Medicine
DX: I48.91 Unspecified atrial fibrillation (principal); E11.9 Type 2 diabetes mellitus without complications; I10 Essential (primary) hypertension; K21.9 Gastro-esophageal reflux disease without esophagitis; E03.9 Hypothyroidism, unspecified